=== PATIENT | female | born 1930 | race Caucasian/White ===

== ENCOUNTER 2016-04-13 10:34 | Observation (INO) | payer MEDICARE, OTHER ==
[~2016-04-13] VITALS: Ht 175.3 cm; Wt 83.3 kg
[~2016-04-13 10:34] MED LIST: ALEVE 220MG220 MG PO; ANTIVERT 12.512.5 MG PO; ARICEPT10 MG PO; ASPIRIN E.C. 8181 MG PO; B-COMPLEX VIT P1 TAB PO; BP med; DETROL LA4 PO; MULTIPLE VITAMI1 CAP PO; NORVASC 10MG10 MG PO
[2016-04-13 11:29] LABS: BASO % 0.3 % (0.0-2.0); EOS % 0.1 % (0-4.0); GRAN # 10.3 (1.4-6.5); GRAN % 88.1 % (42.2-75.2); HEMATOCRIT 42.6 % (37.0-47.0); HEMOGLOBIN 14.5 g/dl (12.5-16.0); LYMPH # 0.5 (1.2-3.4); LYMPH % 4.1 % (20.0-51.0); MEAN CELL VOLUME 93 fl (80.0-100.0); MEAN CORPUSCULAR HEMOGLOBIN 32 pg (27.0-31.0); MEAN CORPUSCULAR HGB CONC 34 g/dl (33.0-37.0); MEAN PLATELET VOLUME 9.8 fl (7.4-10.4); MONO # 0.8 (0.1-0.6); MONO % 7.1 % (1.7-9.3); PLATELET COUNT 260 K/mm3 (130-400); RED BLOOD COUNT 4.59 M/mm3 (4.10-5.30); WHITE BLOOD COUNT 11.7 K/mm3 (4.8-10.8)
[2016-04-13 11:39] LABS: ADJUSTED CALCIUM 9.3 mg/dL (8.4-10.2); ALBUMIN 3.9 gm/dL (3.5-5.0); BILIRUBIN,TOTAL 1.2 mg/dL (0.0-1.0); CALCIUM 9.2 mg/dL (8.4-10.2); CREATININE, serum 0.83 mg/dL (0.52-1.25); POTASSIUM 3.7 mmol/L (3.4-5.0); TOTAL PROTEIN 7.2 gm/dL (6.4-8.2)
[2016-04-13 11:59] LABS: PH 7 (5-8); SQUAMOUS EPITHELIAL 0-2 /hpf; URINE APPEARANCE Cloudy; URINE BACTERIA Moderate /hpf; URINE BILIRUBIN Negative (NEGATIVE); URINE BLOOD Negative (NEGATIVE); URINE COLOR Yellow; URINE GLUCOSE Negative (NEGATIVE); URINE KETONE 1+ (NEGATIVE); URINE RBC 0-2 /hpf; URINE UROBILINOGEN Negative (NEGATIVE)
[2016-04-13 13:54] VITALS: BP 194/99; PULSE 77; TEMP 97.7
[2016-04-13 14:40] VITALS: BP 155/103
[2016-04-13 17:51] VITALS: BP 131/189; PULSE 85; TEMP 98.5
[2016-04-13 21:58] VITALS: BP 122/68; PULSE 107; TEMP 99.6
[2016-04-14] VITALS (10 sets, daily range): BP systolic 91–1089; BP diastolic 35–85; PULSE 80–117; TEMP 97–98.9
[2016-04-15 02:31] VITALS: BP 101/58; PULSE 60; TEMP 98
[2016-04-15 03:41] VITALS: BP 139/89; PULSE 94; TEMP 98.2
[2016-04-15 08:53] VITALS: BP 141/85; PULSE 95; TEMP 97.6
[2016-08-11] MEDS ORDERED: NORVASC 10MG10 MG PO (11:31)
[2016-08-11] MEDS ORDERED: ASPIRIN 81M81 MG/TA2 PO (11:31)
[2016-08-11] MEDS ORDERED: ATIVAN 0.50.5 MG/TAB PO (11:32)
== END 2016-04-15 10:30 | disposition home or self-care (01) ==
LOC: COL.ER 10:34 → SURG 12:58
PROVIDERS: Emergency Medicine
DX: N20.1 Calculus of ureter (principal); E78.5 Hyperlipidemia, unspecified; I10 Essential (primary) hypertension; F03.90 Unspecified dementia, unspecified severity, without behavioral disturbance, psychotic disturbance, mood disturbance, and anxiety
CPT/HCPCS: C1769; C2617; G0378; J0690; J0696; J1100; J1800; J1956; J2270; J2405; J2704; J2765; J3010; J7030; J7120; Q9967

== ENCOUNTER 2016-08-11 11:52 | Day surgery (SDC) | payer MEDICARE, OTHER ==
[~2016-08-11 11:52] MED LIST changes: +ASPIRIN 81M81 MG/TA2 PO; +ATIVAN 0.50.5 MG/TAB PO
[2016-08-11 12:45] VITALS: BP 163/80; PULSE 94
== END 2016-08-11 13:07 | disposition home or self-care (01) ==
LOC: SDCO 11:52
DX: N20.0 Calculus of kidney (principal); I10 Essential (primary) hypertension; E78.5 Hyperlipidemia, unspecified; F03.90 Unspecified dementia, unspecified severity, without behavioral disturbance, psychotic disturbance, mood disturbance, and anxiety; Z80.0 Family history of malignant neoplasm of digestive organs; Z87.891 Personal history of nicotine dependence; Z46.6 Encounter for fitting and adjustment of urinary device

== ENCOUNTER 2017-03-21 14:36 | Emergency (ER) | payer MEDICARE, OTHER ==
[2017-03-21 14:47] VITALS: BP 130/81; TEMP 97.8
[2017-03-21] MEDS ORDERED: ATIVAN 2MG/ML2 MG/ML IM (15:30)
[2017-03-21] MEDS ORDERED: HALDOL 5MG/ML5 MG/ML IM (15:30)
[2017-03-21 16:31] LABS: BASO % 0.6 % (0.0-2.0); EOS # 0.1 (0.0-0.7); EOS % 2.1 % (0-4.0); GRAN # 2.8 (1.4-6.5); GRAN % 58.1 % (42.2-75.2); HEMATOCRIT 41.8 % (37.0-47.0); HEMOGLOBIN 13.8 g/dl (12.5-16.0); LYMPH # 1.3 (1.2-3.4); LYMPH % 26.8 % (20.0-51.0); MEAN CELL VOLUME 97 fl (80.0-100.0); MEAN CORPUSCULAR HEMOGLOBIN 32 pg (27.0-31.0); MEAN CORPUSCULAR HGB CONC 33 g/dl (33.0-37.0); MEAN PLATELET VOLUME 10.1 fl (7.4-10.4); MONO # 0.6 (0.1-0.6); MONO % 12.2 % (1.7-9.3); PLATELET COUNT 309 K/mm3 (130-400); RED BLOOD COUNT 4.33 M/mm3 (4.10-5.30); REDCELL DISTRIBUTION WIDTH-CV 12.7 % (11.5-14.5)
[2017-03-21 16:41] LABS: ALBUMIN 3.8 gm/dL (3.5-5.0); BILIRUBIN,TOTAL 0.5 mg/dL (0.0-1.0); C-REACTIVE PROTEIN 0.8 mg/dL (0.0-0.9); CALCIUM 9.4 mg/dL (8.4-10.2); CREATININE, serum 0.66 mg/dL (0.52-1.25); POTASSIUM 3.9 mmol/L (3.4-5.0); TOTAL PROTEIN 7.1 gm/dL (6.4-8.2)
[2017-03-21 18:40] VITALS: PULSE 86
== END 2017-03-21 18:41 | disposition home or self-care (01) ==
LOC: COL.ER 14:36
PROVIDERS: Emergency Medicine
DX: L97.529 Non-pressure chronic ulcer of other part of left foot with unspecified severity (principal); R60.0 Localized edema; G30.9 Alzheimer's disease, unspecified; F02.80 Dementia in other diseases classified elsewhere, unspecified severity, without behavioral disturbance, psychotic disturbance, mood disturbance, and anxiety; Z79.82 Long term (current) use of aspirin
CPT/HCPCS: J1630; J2060; J7030

== ENCOUNTER 2017-05-18 17:00 | Inpatient (IN) | payer MEDICARE, OTHER ==
[~2017-05-18] VITALS: Ht 175.3 cm; Wt 68.8 kg
[~2017-05-18 17:00] MED LIST changes: +ATIVAN 2MG/ML2 MG/ML IM; +HALDOL 5MG/ML5 MG/ML IM
[2017-05-18 17:27] LABS: BASO % 0.3 % (0.0-2.0); EOS % 0.4 % (0-4.0); GRAN # 9.5 (1.4-6.5); GRAN % 86.2 % (42.2-75.2); HEMATOCRIT 40.7 % (37.0-47.0); HEMOGLOBIN 13.5 g/dl (12.5-16.0); LYMPH # 0.8 (1.2-3.4); LYMPH % 6.9 % (20.0-51.0); MEAN CELL VOLUME 97 fl (80.0-100.0); MEAN CORPUSCULAR HEMOGLOBIN 32 pg (27.0-31.0); MEAN CORPUSCULAR HGB CONC 33 g/dl (33.0-37.0); MEAN PLATELET VOLUME 9.9 fl (7.4-10.4); MONO # 0.6 (0.1-0.6); MONO % 5.7 % (1.7-9.3); PLATELET COUNT 252 K/mm3 (130-400); REDCELL DISTRIBUTION WIDTH-CV 13.3 % (11.5-14.5)
[2017-05-18 17:36] LABS: ALBUMIN 3.6 gm/dL (3.5-5.0); BILIRUBIN,TOTAL 0.4 mg/dL (0.0-1.0); CALCIUM 9.2 mg/dL (8.4-10.2); CREATININE, serum 0.87 mg/dL (0.52-1.25); POTASSIUM 3.9 mmol/L (3.4-5.0)
[2017-05-18 17:38] LABS: INR 1.1 (0.8-3.0); PROTHROMBIN TIME 12.5 SECONDS (9.7-12.8)
[2017-05-18 17:41] LABS: PARTIAL THROMBOPLASTIN TIME 31.3 SECONDS (26.0-37.0)
[2017-05-18 17:43] LABS: PRE ALBUMIN 16.5 mg/dL (17.6-36.0)
[2017-05-18 19:04] LABS: COLLECTION METHOD CATHETER
[2017-05-18] MEDS ORDERED: ASPIRIN 32325 MG/TA1 PO (19:07)
[2017-05-18] MEDS ORDERED: MIRALAX PA17 GM/Dose PO (19:11)
[2017-05-18] MEDS ORDERED: ZYPREXA ZYDIS20 MG PO (19:14)
[2017-05-18] MEDS ORDERED: MULTI VITAMINS1 TAB PO (19:14)
[2017-05-18 19:15] LABS: BUDDING YEAST Present /hpf; PH 7 (5-8); SQUAMOUS EPITHELIAL None Seen /hpf; URINE APPEARANCE Cloudy; URINE BACTERIA Rare /hpf; URINE BILIRUBIN Negative (NEGATIVE); URINE BLOOD 1+ (NEGATIVE); URINE COLOR Yellow; URINE GLUCOSE Negative (NEGATIVE); URINE KETONE Negative (NEGATIVE); URINE LEUKOCYTE ESTERASE 3+ (NEGATIVE); URINE NITRATE Negative (NEGATIVE); URINE PROTEIN(semi-quant) 1+ (NEGATIVE); URINE RBC 20-50 /hpf; URINE UROBILINOGEN Negative (NEGATIVE)
[2017-05-18] MEDS ORDERED: PRILOSEC 20MG20 MG PO (19:15)
[2017-05-18] MEDS ORDERED: DESYREL 50MG50 MG PO (19:15)
[2017-05-18 19:56] VITALS: BP 152/82; PULSE 102; TEMP 99.6
[2017-05-18 20:23] VITALS: BP 152/82; PULSE 102; TEMP 99.6
[2017-05-19] VITALS (14 sets, daily range): BP systolic 102–150; BP diastolic 62–95; PULSE 67–122; TEMP 98.1–99
[2017-05-19 04:07] LABS: BASO % 0.3 % (0.0-2.0); EOS % 0.3 % (0-4.0); GRAN # 6.2 (1.4-6.5); GRAN % 83.8 % (42.2-75.2); HEMATOCRIT 39.9 % (37.0-47.0); HEMOGLOBIN 13.3 g/dl (12.5-16.0); LYMPH # 0.6 (1.2-3.4); LYMPH % 7.8 % (20.0-51.0); MEAN CELL VOLUME 95 fl (80.0-100.0); MEAN CORPUSCULAR HEMOGLOBIN 32 pg (27.0-31.0); MEAN CORPUSCULAR HGB CONC 33 g/dl (33.0-37.0); MEAN PLATELET VOLUME 9.6 fl (7.4-10.4); MONO # 0.6 (0.1-0.6); MONO % 7.5 % (1.7-9.3); PLATELET COUNT 238 K/mm3 (130-400); RED BLOOD COUNT 4.19 M/mm3 (4.10-5.30); REDCELL DISTRIBUTION WIDTH-CV 13.3 % (11.5-14.5)
[2017-05-19 04:16] LABS: CALCIUM 8.8 mg/dL (8.4-10.2); CREATININE, serum 0.76 mg/dL (0.52-1.25)
[2017-05-20 04:00] VITALS: BP 138/51
[2017-05-20 05:41] VITALS: PULSE 92
[2017-05-20 06:57] LABS: HEMATOCRIT 34.3 % (37.0-47.0); HEMOGLOBIN 11.2 g/dl (12.5-16.0)
[2017-05-20 10:11] VITALS: BP 132/64; PULSE 104; TEMP 98.1
[2017-05-20 17:50] VITALS: BP 95/56; PULSE 104; TEMP 99.4
[2017-05-20 21:00] VITALS: BP 105/61; PULSE 97; TEMP 99.3
[2017-05-21] VITALS: BP 99/58; PULSE 93; TEMP 99.1
[2017-05-21 05:29] VITALS: BP 124/66; PULSE 93; TEMP 97.7
[2017-05-21 07:11] LABS: BASO % 0.4 % (0.0-2.0); EOS # 0.3 (0.0-0.7); EOS % 4.4 % (0-4.0); GRAN # 4.8 (1.4-6.5); GRAN % 68.8 % (42.2-75.2); HEMOGLOBIN 10.2 g/dl (12.5-16.0); LYMPH # 1.1 (1.2-3.4); LYMPH % 15.1 % (20.0-51.0); MEAN CELL VOLUME 96 fl (80.0-100.0); MEAN CORPUSCULAR HGB CONC 33 g/dl (33.0-37.0); MEAN PLATELET VOLUME 10.6 fl (7.4-10.4); MONO # 0.8 (0.1-0.6); PLATELET COUNT 186 K/mm3 (130-400); REDCELL DISTRIBUTION WIDTH-CV 13.2 % (11.5-14.5)
[2017-05-21 07:13] LABS: HEMATOCRIT 30.6 % (37.0-47.0); HEMOGLOBIN 10.2 g/dl (12.5-16.0); MEAN CORPUSCULAR HEMOGLOBIN 32 pg (27.0-31.0)
[2017-05-21 07:22] LABS: CALCIUM 7.9 mg/dL (8.4-10.2); CREATININE, serum 0.79 mg/dL (0.52-1.25)
[2017-05-21 10:16] VITALS: BP 104/62; PULSE 104; TEMP 97.8
[2017-05-21 13:48] LABS: FOLATE (FOLIC ACID) 7.9 ng/mL (7.0-31.4)
[2017-05-21] MEDS ORDERED: ASPI325T6 PO (13:53)
[2017-05-21] MEDS ORDERED: ULTRAM 50MG TAB50 MG PO (13:55)
[2017-05-21] MEDS ORDERED: TYLENOL 325MG325 MG PO (13:56)
[2017-05-21] MEDS ORDERED: CIPRO 500MG TA500 MG PO (13:57)
== END 2017-05-21 17:18 | DRG 470 ==
LOC: COL.ER 17:00 → SURG 18:00
PROVIDERS: Emergency Medicine; Internal Medicine; Nurse Practitioner; Orthopaedic Surgery; Physician Assistant
PROC: 0SRR0J9 Replacement of Right Hip Joint, Femoral Surface with Synthetic Substitute, Cemented, Open Approach (ICD-10-PCS; principal; 2017-05-19 08:00)
DX: S72.001A Fracture of unspecified part of neck of right femur, initial encounter for closed fracture (principal); N39.0 Urinary tract infection, site not specified; E87.0 Hyperosmolality and hypernatremia; F02.81 Dementia in other diseases classified elsewhere, unspecified severity, with behavioral disturbance; W18.30XA Fall on same level, unspecified, initial encounter; I10 Essential (primary) hypertension; G30.9 Alzheimer's disease, unspecified; B96.1 Klebsiella pneumoniae [K. pneumoniae] as the cause of diseases classified elsewhere
CPT/HCPCS: 99223-AI; 99232-AI; 99239; A9284; C1776; J0690; J0696; J1885; J2250; J2270; J2405; J2704; J3010; J7120; J7121